=== PATIENT | female | born 1985 | race Caucasian/White ===

== ENCOUNTER 2016-08-21 23:27 | Emergency (ER) | payer MEDICAID ==
[2016-08-21 23:55] VITALS: TEMP 98.2; BMI 47.6
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
[2016-08-22] MEDS ORDERED: CYCLOBENZAPRINE 10 MG TAB PO ONE (01:19)
[2016-08-22] MEDS ORDERED: IBUPROFEN 800 MG TAB PO ONE (01:19)
[2016-08-22 01:33] VITALS: BP 140/78; PULSE 70
== END 2016-08-22 01:32 | disposition home or self-care (01) ==
LOC: ED 23:27
DX: S16.1XXA Strain of muscle, fascia and tendon at neck level, initial encounter (principal); X58.XXXA Exposure to other specified factors, initial encounter; Y93.89 Activity, other specified
CPT/HCPCS: 99283; J3490